=== PATIENT | female | born 1990 | race Caucasian/White ===

== ENCOUNTER 2024-10-19 23:20 | Emergency (ER) | payer SELFPAY ==
[~2024-10-19] VITALS: Ht 152.4 cm; Wt 68.9 kg
[2024-10-19 23:30] VITALS: O2SAT 100
[2024-10-20] MEDS: ACETAMINOPHEN 325MG TABLET PO STA (00:26)
[2024-10-20] MEDS: ONDANSETRON 4MG ODT PO NR (02:36)
[2024-10-20] MEDS: ACETAMINOPHEN 325MG TABLET PO NR (02:36)
[2024-10-20] MEDS: ONDANSETRON 4MG ODT PO STA (02:36)
[2024-10-20] MEDS ORDERED: ACET-2708 MT (03:04)
[2024-10-20 03:22] VITALS: BP 131/77; PULSE 81; RESP 18; TEMP 36.94740; O2SAT 100
== END 2024-10-20 03:23 | disposition home or self-care (01) ==
LOC: ER 23:38
DX: O26.891 Other specified pregnancy related conditions, first trimester (principal); M54.50 Low back pain, unspecified; R10.2 Pelvic and perineal pain; Z3A.01 Less than 8 weeks gestation of pregnancy; V49.59XA Passenger injured in collision with other motor vehicles in traffic accident, initial encounter; Y93.89 Activity, other specified; Y92.89 Other specified places as the place of occurrence of the external cause; Y99.8 Other external cause status
CPT/HCPCS: 99284; 81025; 76801; Q0162; 99283